=== PATIENT | female | born 1985 | race Two or more races ===

== ENCOUNTER 2022-01-30 14:28 | Outpatient (CLI) | payer OTHER, SELFPAY ==
[2022-02-02 08:10] LABS: Chlamydia By Nucleic Acid AMP Negative (Negative)
[2022-02-02 15:47] LABS: Gonococcus By Nucleic Acid AMP Negative (Negative)
[2022-02-06 16:01] LABS: HPV Reflexed? NOT INDICATED
== END 2022-01-30 23:59 | disposition home or self-care (01) ==
LOC: LABSPEC 14:38
PROVIDERS: Referring Provider Obstetrics & Gynecology; Visit Provider Obstetrics & Gynecology
DX: Z12.4 Encounter for screening for malignant neoplasm of cervix (principal); Z11.3 Encounter for screening for infections with a predominantly sexual mode of transmission
CPT/HCPCS: 87491; 87591; 88175; G0145

== ENCOUNTER 2024-11-08 05:56 | Emergency (ER) | payer OTHER, SELFPAY ==
[2024-11-08 05:57] VITALS: BP 157/72; PULSE 105; RESP 32; TEMP 36.5; O2SAT 100; BMI 48.2
--- NOTE | 2024-11-08 06:13 | CT_ITS ---
INDICATION: headache, vertigo EXAMINATION: CT BRAIN - CT Head or Brain W/O Contrast Injection TECHNIQUE: Multiple axial images were obtained of the head with sagittal and coronal reconstructed images. Individualized dose optimization techniques were used for this CT. IV contrast dosage and agent: None. COMPARISON: None. FINDINGS: BRAIN PARENCHYMA: No evidence of an acute infarct or intracranial hemorrhage. No evidence of a mass. CSF SPACES: The ventricles, sulci and subarachnoid cisterns are appropriate for age. CALVARIUM, SKULL BASE, PARANASAL SINUSES AND MASTOID AIR CELLS: No fracture. Mastoid air cells are clear. Visualized paranasal sinuses are unremarkable. ORBITS: The globes, extraocular muscles, optic nerves and retrobulbar fat are unremarkable. CT/Brain/Head without Contrast IMPRESSION: Normal noncontrast CT of the head. Electronically Signed: Scott Rojo DO at 7:44 EST ,
--- NOTE | 2024-11-08 06:14 | EX.ED.VIS.HA ---
HPI History of Present Illness Chief Complaint: Headache Informant: patient and spouse/S.O. Narrative Narrative: 39-year-old female presenting with headache. She states she has been feeling dizzy with this, and it has been going on for 1.5 weeks. She states none of the symptoms have gone away but agrees that lying down and changing head positions makes everything worse. It is made her feel nauseated but she has not been vomiting. The headache is described as a deep ache and she points to her ethmoid sinus area and states it feels like it is behind there. She denies any runny nose, nasal congestion, cough, fevers or chills, sore throat or other upper respiratory symptoms but states she was seen at urgent care less than 24 hours ago and prescribed an antibiotic for a sinus infection, she thinks it is Augmentin and she is taking only 1 pill. She does not have any earache, hearing changes, tinnitus. She does admit that she is off balance when she tries to walk. She is extremely anxious, admits to being so, admits to being diagnosed with an anxiety disorder and is now on medications for that, and also admits to hyperventilating since she has been at home and now starting to have some cramping in her wrist. She denies any focal numbness or weakness. She denies any recent head injury or otherwise. [facility] Medical History (Updated 11/08/24 @ 07:[address] Kenny Miranda MD) Type 2 diabetes mellitus HTN (hypertension) Anxiety Home Medications ?Medication ?Instructions ?Recorded ?Last Taken ?Type fluoxetine 40 mg capsule 40 mg PO DAILY 11/08/24 Unknown History hydrochlorothiazide 25 mg tablet 25 mg PO DAILY 11/08/24 Unknown History lisinopril 5 mg tablet 5 mg PO DAILY 11/08/24 Unknown History meclizine 25 mg tablet 25 mg PO Q8H PRN PRN Dizziness #20 11/08/24 Unknown Rx tabs metformin 1,000 mg tablet 1,000 mg PO BID 11/08/24 Unknown History ondansetron 8 mg disintegrating 8 mg PO Q8H PRN nausea and 11/08/24 Unknown Rx tablet vomiting #12 tabs Allergy/AdvReac Type Severity Reaction Status Date / Time acetaminophen (From Vicodin) Allergy Mild Itching Verified 11/08/24 06:52 hydrocodone (From Vicodin) Allergy Mild Itching Verified 11/08/24 06:52 Social History Smoking Status: Never smoker ROS ROS ED Constitutional Constitutional ED: Denies chills or fever(s) Eyes Eyes: Reports change in vision bilateral (brief blurriness; no vision loss); Denies diplopia ENT ENT ED: Reports disequillibrium, headache(s) and vertigo; Denies ear pain, nasal congestion, rhinorrhea, sore throat or tinnitus Cardiovascular Cardiovascular: Reports lightheadedness; Denies chest pain or palpitations Respiratory/Chest Respiratory/Chest: Denies cough or dyspnea Gastrointestinal Gastrointestinal: Reports nausea; Denies abdominal pain, diarrhea or vomiting Genitourinary Genitourinary ED: Denies dysuria or hematuria Musculoskeletal Musculoskeletal: Denies back pain or neck pain Integumentary Denies abscess or rash Neurologic Neurologic: Reports disequilibrium, dizziness and headache(s); Denies paresthesias or weakness Psychiatric Psychiatric: Reports anxiety; Denies suicidal thoughts EXAM Physical Exam Const Vital Signs: 11/08/24 05:57 Temperature 97.7 F L Temperature Source Oral Pulse Rate 105 H Respiratory Rate 32 H Blood Pressure 157/72 H Blood Pressure Mean 100 Pulse Ox 100 Oxygen Delivery Method Room Air Positive well nourished and well developed General Appearance ED: well developed and NAD HEENT Reports TM's clear and moist mucous membranes normocephalic and atraumatic Tympanic Membrane ED: Yes TM's clear Eyes PERRL and EOMs intact bilaterally Eyes Narrative: No non-fatigable nystagmus, no vertical nystagmus no rotatory nystagmus. Neck full ROM and supple Resp normal respiratory effort and clear to auscultation bilaterally Cardio regular rate, regular rhythm and no murmurs GI non-tender and non-distended Auscultation: normoactive bowel sounds Palpation: soft Back/Spine no CVA tenderness General Back: other FROM Extremity normal to inspection General Extremety ED: Negative for edema, pulses abnormal or tenderness General Extremity: Negative for edema or pulses abnormal Neuro oriented x3, CN's II-XII intact bilaterally and no sensory deficits noted Neuro Narrative: Normal [id number] and [id number] bilaterally. Normal skew test. Attempting to perform jolt test, patient is still uncomfortable and continues to close her eyes and hyperventilate and is unable to complete the test. Sensorium / Orientation: awake and alert Motor Exam: strength 5/5 throughout Psych Attitude: agitated Mood & Affect: anxious and tearful Skin no rashes or lesions noted and no wounds MDM MDM MDM Narrative Medical decision making narrative: With attempting to turn her head just slightly for jolt testing, she is extremely uncomfortable and describing worsening dizziness. I think this is all a version of vertigo. Her symptoms seem like a version of acute vestibular syndrome except she has not been vomiting; just nauseated. Her jolt test is very limited due to her anxiety and inability to keep her eyes open, I suspect if she was able it would be abnormal given her inability to maintain focus on a single-point/object. However in addition to labs and performing a CT to evaluate for the possibility of cerebellopontine angle mass effect, sphenoid sinus sinus, or less likely cerebral infarct, I am treating her for peripheral vertigo with IV Ativan, Reglan, and oral meclizine. On reevaluation after the above treatment, she is feeling significantly better, still having a little dizziness but is no longer hyperventilating and crying. The labs are reviewed and unremarkable except for very mild hyponatremia which does not require emergent intervention. I reviewed the CT images of her head, on my interpretation there is no acute abnormality including sphenoid sinusitis; radiology in agreement. Given all of this, I recommend she discontinue the antibiotic which I do not see a need for, I am going to give her prescriptions for ondansetron and meclizine to use as needed and advising her to follow-up with otolaryngology if her symptoms persist. Lab Data Attestation: I reviewed the patient's lab results. Labs: Laboratory Results - last 24 hr 11/08/24 06:30 WBC 9.6 RBC 4.70 Hgb 13.7 Hct 37.8 MCV 80.4 L MCH 29.1 MCHC 36.2 H RDW Std Deviation 33.7 L RDW Coeff of Fannie 11.7 Plt Count 276 MPV 10.3 Immature Gran % (Auto) 0.600 Neut % (Auto) 75.9 H Lymph % (Auto) 16.8 L [place] % (Auto) 5.9 Eos % (Auto) 0.5 Baso % (Auto) 0.3 Absolute Neuts (auto) 7.3 Absolute Lymphs (auto) 1.61 Nucleated RBC % 0 Sodium 129 L Potassium 3.6 Chloride 96 L Carbon Dioxide 22.0 Anion Gap 11 BUN 8 Creatinine 1.02 Estim Creat Clear Calc 97.01 Est GFR (MDRD) Af Amer 77 Est GFR (MDRD) Non-Af 64 BUN/Creatinine Ratio 7.8 L Glucose 193 H Calcium 9.5 Radiography Diagnostic Testing: Clinical Impression(s) from Imaging Studies Brain CT 11/08/24 06:13 IMPRESSION: Normal noncontrast CT of the head. Electronically Signed: Scott Rojo DO at 7:44 EST , Discharge Plan Triage Chief Complaint: Headache ED Provider: Kenny Miranda Dx/Rx/DC Orders Clinical Impression: Peripheral vertigo, unspecified Instructions: ED Vertigo, Unspecified Prescriptions: New meclizine 25 mg tablet 25 mg PO Q8H PRN PRN (Reason: Dizziness) Qty: 20 0RF ondansetron 8 mg tablet,disintegrating 8 mg PO Q8H PRN (Reason: nausea and vomiting) Qty: 12 0RF No Action fluoxetine 40 mg capsule 40 mg PO DAILY metformin 1,000 mg tablet 1,000 mg PO BID lisinopril 5 mg tablet 5 mg PO DAILY hydrochlorothiazide 25 mg tablet 25 mg PO DAILY Primary Care Provider: Gena Griffin Referrals: Wesley Owens MD [Med Staff - Active Staff] - 1 Week if not improving Gena Griffin PA-C [Primary Care Provider] - 3-5 Days if not improving Activity Restrictions/Additional Instructions: Stop your antibiotic - no indication for it at this time. Print Language: Italian Disposition Disposition: Home, Self Care
[2024-11-08] MEDS: Meclizine HCl 25 MG Tablet PO (06:33)
[2024-11-08] MEDS: Metoclopramide 10 MG/2 ML Vial 5 MG IV (06:34)
[2024-11-08 06:44] LABS: Absolute Lymphocyte Count 1.61 X10^3/uL (0.83-4.51); Absolute Neutrophil Count 7.3 X10^3/uL (2.0-7.7); Basophil# 0.03 X10^3/uL; Basophil% 0.3 % (0-1); Eosinophil# 0.05 X10^3/uL; Eosinophils% 0.5 % (0-5); Hematocrit 37.8 % (37-47); Hemoglobin 13.7 g/dL (12.0-15.0); Lymphocyte # 1.61 X10^3/ul (0.83-4.51); Lymphocyte % 16.8 % (19-41); Mean Corp Hgb Conc 36.2 g/dL (32-36); Mean Corpuscular Hgb 29.1 pg (27.0-32.0); Mean Corpuscular Volume 80.4 fL (81-99); Mean Platelet Vol. 10.3 fl (6.2-12.0); Monocyte# 0.57 X10^3/uL; Monocyte% 5.9 % (0-10); NRBC Flagged by Analyzer 0 % (0-5); Neutrophil # 7.27 X10^3/uL (2.7-7.7); Neutrophil % 75.9 % (47-70); Platelet Count 276 K/mm3 (150-450); RBC Distribution Width CV 11.7 % (11.6-14.6); RBC Distribution Width SD 33.7 fl (35.1-43.9); White Blood Count 9.6 K/mm3 (4.4-11.0)
[2024-11-08] MEDS: Lorazepam 2 MG/ML WCH Syringe 0.5 MG IV (06:50)
[2024-11-08 07:04] LABS: Anion Gap 11 (5-15); BUN 8 mg/dL (7-18); BUN/Creat Ratio 7.8 RATIO (10-20); Calcium,Total 9.5 mg/dL (8.5-10.1); Chloride 96 mmol/L (98-107); Creatinine, Serum 1.02 mg/dL (0.55-1.02); EST Glomerular Filtration Rate 64 mL/min (>60); Est Glom Filt Rate - Afr Amer 77 mL/min (>60); Estimated Creatinine Clearance 97.01 ml/min; Glucose 193 mg/dL (74-106); Potassium 3.6 mmol/L (3.5-5.1); Sodium Level 129 mmol/L (136-145)
[2024-11-08 07:56] VITALS: BP 127/63; PULSE 72; RESP 15; TEMP 36.7; O2SAT 97
== END 2024-11-08 07:57 | disposition home or self-care (01) ==
PROVIDERS: Emergency Provider Emergency Medicine; PCP Family Medicine; Visit Provider Emergency Medicine
DX: H81.399 Other peripheral vertigo, unspecified ear (principal); E11.9 Type 2 diabetes mellitus without complications; I10 Essential (primary) hypertension; F41.9 Anxiety disorder, unspecified; Z79.899 Other long term (current) drug therapy; Z79.84 Long term (current) use of oral hypoglycemic drugs
CPT/HCPCS: 70450; 80048; 85025; 96374; 96375; 96376; 99282; A4216